=== PATIENT | male | born 1945 | race Caucasian/White ===

== ENCOUNTER 2020-09-17 19:56 | Inpatient (IN) | payer MEDICARE, OTHER ==
[~2020-09-17] VITALS: Ht 170.2 cm; Wt 77.3 kg
[2020-09-17 21:43] LABS: COVID AG,FIA SOURCE NASOPHARYNGEAL
[2020-09-17 21:50] LABS: CALCIUM, TOTAL 9.1 mg/dL (8.8-10.5); CREATININE 8.37 mg/dL (0.60-1.30); POTASSIUM 4.5 mmol/L (3.5-5.1)
[2020-09-17 21:51] LABS: BASOPHILS % (AUTO) 1.3 % (0.0-2.0); EOSINOPHILS % (AUTO) 7.2 % (1.0-6.0); HEMATOCRIT 23.3 % (41-53); HEMOGLOBIN 7.5 g/dL (13.5-17.5); LYMPHOCYTES # (AUTO) 0.8 K/uL (1.0-4.8); LYMPHOCYTES % (AUTO) 12.1 % (22.0-44.0); MEAN CORPUSCULAR HEMOGLOBIN 29.3 pg (26.0-34.0); MEAN CORPUSCULAR VOLUME 92 fL (80-100); MONOCYTES # (AUTO) 0.4 K/uL (0.1-1.0); MONOCYTES % (AUTO) 5.6 % (2.0-9.0); NEUTROPHILS # (AUTO) 4.9 K/uL (1.8-7.7); NEUTROPHILS % (AUTO) 73.8 % (40.0-70.0); PLATELET COUNT (AUTO) 249 K/uL (150-450); RED BLOOD CELL COUNT(AUTO) 2.55 MIL/uL (4.50-5.90); RED CELL DISTRIBUTION WIDTH 16.7 % (11.5-14.5)
[2020-09-17 21:56] LABS: ALBUMIN 2.8 g/dL (3.4-5.0); BILIRUBIN,TOTAL 0.4 mg/dL (0.1-1.0); TOTAL PROTEIN, SERUM 7.1 g/dL (6.4-8.2)
[2020-09-17] MEDS ORDERED: NITROGLYCERIN 2% (1 GM=INCH) PACKET TP ONE (23:30)
[2020-09-18] MEDS ORDERED: ACETAMINOPHEN 325 MG TABLET PO PRN ×2 (00:15→00:30)
[2020-09-18] MEDS ORDERED: 0.9% SODIUM CHLORIDE 10 ML SYRINGE IVP PRN (00:15)
[2020-09-18] MEDS ORDERED: ONDANSETRON HCL 4 MG/2 ML VIAL IVP PRN ×2 (00:15→00:30)
[2020-09-18] MEDS ORDERED: OxyCODONE HCL/ACETAMINOPHEN 5-325 MG TABLET PO PRN (00:30)
[2020-09-18] MEDS: CloNIDine HCL 0.1 MG TABLET PO PRN (03:42)
[2020-09-18 04:34] VITALS: BP 203/81
[2020-09-18 05:30] VITALS: BP 159/68
[2020-09-18] MEDS ORDERED: PNEUMOCOCCAL VACCINE POLYVALENT 0.5 ML VIAL [PPSV23] IM. ONE (05:30)
[2020-09-18] MEDS ORDERED: DEXTROSE 50%-WATER 25 GM/50 ML SYRINGE IVP PRN (05:45)
[2020-09-18 07:40] VITALS: BP 188/68
[2020-09-18] MEDS: DOCUSATE SODIUM 100 MG CAPSULE PO SCH ×2 (08:57→20:27)
[2020-09-18] MEDS: FAMOTIDINE 20 MG TABLET PO SCH (08:57)
[2020-09-18] MEDS: AmLODIPine BESYLATE 10 MG TABLET PO SCH (08:57)
[2020-09-18] MEDS: ASPIRIN 81 MG CHEWABLE TABLET PO SCH (08:57)
[2020-09-18] MEDS: HEPARIN SODIUM,PORCINE 5,000 UNITS/ML VIAL SQ SCH ×2 (08:57→20:25)
[2020-09-18] MEDS ORDERED: LOSARTAN POTASSIUM 50 MG TABLET PO SCH (09:00)
[2020-09-18 11:23] VITALS: BP 145/64
[2020-09-18] MEDS: INSULIN LISPRO 100 UNITS/ML SQ PRN ×2 (11:30→17:20)
[2020-09-18 16:29] VITALS: BP 167/70
[2020-09-18 20:00] VITALS: BP 179/66
[2020-09-18] MEDS: LOSARTAN POTASSIUM 50 MG TABLET PO SCH (20:25)
[2020-09-18] MEDS ORDERED: SODIUM CHLORIDE 0.9% 2,000 ML ONE (21:15)
[2020-09-18 23:56] LABS: GLUCOMETER DEV NAME(LOC) 5S.2B; GLUCOSE,POINT OF CARE 90 MG/DL (70-110)
[2020-09-18 23:57] LABS: GLUCOMETER DEV NAME(LOC) 5S.2B; GLUCOSE,POINT OF CARE 165 MG/DL (70-110)
[2020-09-18 23:57] LABS: GLUCOMETER DEV NAME(LOC) 5S.2B; GLUCOSE,POINT OF CARE 210 MG/DL (70-110)
[2020-09-19] VITALS (14 sets, daily range): BP systolic 138–184; BP diastolic 56–98
[2020-09-19] MEDS: CloNIDine HCL 0.1 MG TABLET PO PRN ×2 (04:14→13:34)
[2020-09-19 05:18] LABS: GLUCOMETER DEV NAME(LOC) 5N.1C; GLUCOSE,POINT OF CARE 59 MG/DL (70-110)
[2020-09-19 05:18] LABS: GLUCOMETER DEV NAME(LOC) 5N.1C; GLUCOSE,POINT OF CARE 85 MG/DL (70-110)
[2020-09-19 07:43] LABS: ALBUMIN 2.3 g/dL (3.4-5.0); BILIRUBIN,TOTAL 0.3 mg/dL (0.1-1.0); CREATININE 5.11 mg/dL (0.60-1.30); POTASSIUM 4.3 mmol/L (3.5-5.1); TOTAL PROTEIN, SERUM 5.8 g/dL (6.4-8.2)
[2020-09-19 08:39] LABS: BASOPHILS % (AUTO) 1.4 % (0.0-2.0); EOSINOPHILS % (AUTO) 11.3 % (1.0-6.0); LYMPHOCYTES # (AUTO) 0.8 K/uL (1.0-4.8); LYMPHOCYTES % (AUTO) 24.6 % (22.0-44.0); MEAN CORPUSCULAR HEMOGLOBIN 29.3 pg (26.0-34.0); MEAN CORPUSCULAR HGB CONC 32.2 G/dL (31.0-37.0); MEAN CORPUSCULAR VOLUME 91 fL (80-100); MONOCYTES # (AUTO) 0.2 K/uL (0.1-1.0); MONOCYTES % (AUTO) 7.3 % (2.0-9.0); NEUTROPHILS # (AUTO) 1.8 K/uL (1.8-7.7); NEUTROPHILS % (AUTO) 55.4 % (40.0-70.0); PLATELET COUNT (AUTO) 167 K/uL (150-450); RED BLOOD CELL COUNT(AUTO) 2.21 MIL/uL (4.50-5.90); RED CELL DISTRIBUTION WIDTH 15.7 % (11.5-14.5)
[2020-09-19 08:46] LABS: HEMATOCRIT 20.1 % (41-53); HEMOGLOBIN 6.5 g/dL (13.5-17.5)
[2020-09-19] MEDS: ASPIRIN 81 MG CHEWABLE TABLET PO SCH (09:13)
[2020-09-19] MEDS: LOSARTAN POTASSIUM 50 MG TABLET PO SCH ×2 (09:13→22:07)
[2020-09-19] MEDS: DOCUSATE SODIUM 100 MG CAPSULE PO SCH ×2 (09:13→22:07)
[2020-09-19] MEDS: HEPARIN SODIUM,PORCINE 5,000 UNITS/ML VIAL SQ SCH ×2 (09:14→22:07)
[2020-09-19] MEDS: AmLODIPine BESYLATE 10 MG TABLET PO SCH (09:14)
[2020-09-19] MEDS: FAMOTIDINE 20 MG TABLET PO SCH (09:14)
[2020-09-19] MEDS: SEVELAMER CARBONATE 800 MG TABLET PO SCH ×2 (12:07→17:15)
[2020-09-19] MEDS ORDERED: SODIUM CHLORIDE 0.9% 250 ML IV ONE (13:18)
[2020-09-19 16:37] LABS: GLUCOMETER DEV NAME(LOC) 5N.3; GLUCOSE,POINT OF CARE 66 MG/DL (70-110)
[2020-09-19 16:37] LABS: GLUCOMETER DEV NAME(LOC) 5N.3; GLUCOSE,POINT OF CARE 113 MG/DL (70-110)
[2020-09-19 21:46] LABS: GLUCOMETER DEV NAME(LOC) 5N.1C; GLUCOSE,POINT OF CARE 106 MG/DL (70-110)
[2020-09-20 02:56] LABS: GLUCOMETER DEV NAME(LOC) 5N.1C; GLUCOSE,POINT OF CARE 106 MG/DL (70-110)
[2020-09-20 04:14] VITALS: BP 156/61
[2020-09-20 06:39] LABS: BASOPHILS % (AUTO) 0.8 % (0.0-2.0); EOSINOPHILS % (AUTO) 7.8 % (1.0-6.0); HEMATOCRIT 22.9 % (41-53); HEMOGLOBIN 7.4 g/dL (13.5-17.5); LYMPHOCYTES % (AUTO) 22.3 % (22.0-44.0); MEAN CORPUSCULAR HEMOGLOBIN 29.4 pg (26.0-34.0); MEAN CORPUSCULAR HGB CONC 32.4 G/dL (31.0-37.0); MEAN CORPUSCULAR VOLUME 91 fL (80-100); MONOCYTES # (AUTO) 0.3 K/uL (0.1-1.0); MONOCYTES % (AUTO) 6.4 % (2.0-9.0); NEUTROPHILS # (AUTO) 2.8 K/uL (1.8-7.7); NEUTROPHILS % (AUTO) 62.7 % (40.0-70.0); PLATELET COUNT (AUTO) 154 K/uL (150-450); RED BLOOD CELL COUNT(AUTO) 2.53 MIL/uL (4.50-5.90); RED CELL DISTRIBUTION WIDTH 16.2 % (11.5-14.5)
[2020-09-20 07:01] LABS: CREATININE 7.06 mg/dL (0.60-1.30); MAGNESIUM 2.1 mg/dL (1.80-2.40); PHOSPHORUS 3.9 mg/dL (2.5-4.9); POTASSIUM 4.7 mmol/L (3.5-5.1)
[2020-09-20 07:03] LABS: GLUCOMETER DEV NAME(LOC) 5N.1C; GLUCOSE,POINT OF CARE 65 MG/DL (70-110)
[2020-09-20 07:04] LABS: GLUCOMETER DEV NAME(LOC) 5N.1C; GLUCOSE,POINT OF CARE 103 MG/DL (70-110)
[2020-09-20 07:26] VITALS: BP 180/65
[2020-09-20] MEDS: SEVELAMER CARBONATE 800 MG TABLET PO SCH ×3 (08:00→17:52)
[2020-09-20] MEDS: HEPARIN SODIUM,PORCINE 5,000 UNITS/ML VIAL SQ SCH ×2 (09:00→21:24)
[2020-09-20] MEDS: DOCUSATE SODIUM 100 MG CAPSULE PO SCH ×2 (09:00→21:24)
[2020-09-20] MEDS: ASPIRIN 81 MG CHEWABLE TABLET PO SCH (09:52)
[2020-09-20] MEDS: FAMOTIDINE 20 MG TABLET PO SCH (09:52)
[2020-09-20] MEDS: LOSARTAN POTASSIUM 50 MG TABLET PO SCH ×2 (09:56→22:34)
[2020-09-20 11:20] VITALS: BP 187/72
[2020-09-20] MEDS: AmLODIPine BESYLATE 10 MG TABLET PO SCH (11:48)
[2020-09-20 16:14] VITALS: BP 156/66
[2020-09-20] MEDS: HydrALAZINE HCL 25 MG TABLET PO SCH ×2 (17:52→21:24)
[2020-09-20 19:39] VITALS: BP 171/60
[2020-09-20 22:18] LABS: GLUCOMETER DEV NAME(LOC) 5N.1C; GLUCOSE,POINT OF CARE 67 MG/DL (70-110)
[2020-09-20 22:19] LABS: GLUCOMETER DEV NAME(LOC) 5N.1C; GLUCOSE,POINT OF CARE 112 MG/DL (70-110)
[2020-09-20 22:19] LABS: GLUCOMETER DEV NAME(LOC) 5N.1C; GLUCOSE,POINT OF CARE 119 MG/DL (70-110)
[2020-09-21] VITALS (7 sets, daily range): BP systolic 147–196; BP diastolic 56–80
[2020-09-21 05:14] LABS: GLUCOMETER DEV NAME(LOC) 5N.3; GLUCOSE,POINT OF CARE 75 MG/DL (70-110)
[2020-09-21 07:21] LABS: BASOPHILS % (AUTO) 1.3 % (0.0-2.0); HEMATOCRIT 22.4 % (41-53); HEMOGLOBIN 7.2 g/dL (13.5-17.5); MEAN CORPUSCULAR HEMOGLOBIN 29.1 pg (26.0-34.0); MEAN CORPUSCULAR HGB CONC 32.3 G/dL (31.0-37.0); MEAN CORPUSCULAR VOLUME 90 fL (80-100); MONOCYTES # (AUTO) 0.3 K/uL (0.1-1.0); MONOCYTES % (AUTO) 7.2 % (2.0-9.0); NEUTROPHILS # (AUTO) 2.2 K/uL (1.8-7.7); NEUTROPHILS % (AUTO) 56.5 % (40.0-70.0); PLATELET COUNT (AUTO) 147 K/uL (150-450); RED BLOOD CELL COUNT(AUTO) 2.48 MIL/uL (4.50-5.90); RED CELL DISTRIBUTION WIDTH 15.7 % (11.5-14.5)
[2020-09-21 07:31] LABS: CALCIUM, TOTAL 8.3 mg/dL (8.8-10.5); CREATININE 6.04 mg/dL (0.60-1.30); MAGNESIUM 2.1 mg/dL (1.80-2.40); PHOSPHORUS 4.1 mg/dL (2.5-4.9); POTASSIUM 5.2 mmol/L (3.5-5.1)
[2020-09-21] MEDS: SEVELAMER CARBONATE 800 MG TABLET PO SCH ×3 (08:00→18:38)
[2020-09-21] MEDS ORDERED: EPOETIN ALFA 10,000 UNITS/ML VIAL SQ SCH ×2 (09:00)
[2020-09-21] MEDS: ASPIRIN 81 MG CHEWABLE TABLET PO SCH (09:59)
[2020-09-21] MEDS: AmLODIPine BESYLATE 10 MG TABLET PO SCH (09:59)
[2020-09-21] MEDS: DOCUSATE SODIUM 100 MG CAPSULE PO SCH ×2 (09:59→20:20)
[2020-09-21] MEDS: FAMOTIDINE 20 MG TABLET PO SCH (09:59)
[2020-09-21] MEDS: HEPARIN SODIUM,PORCINE 5,000 UNITS/ML VIAL SQ SCH ×2 (10:00→20:20)
[2020-09-21 12:00] LABS: GLUCOMETER DEV NAME(LOC) 5N.1C; GLUCOSE,POINT OF CARE 77 MG/DL (70-110)
[2020-09-21 12:00] LABS: GLUCOMETER DEV NAME(LOC) 5N.1C; GLUCOSE,POINT OF CARE 71 MG/DL (70-110)
[2020-09-21 12:22] LABS: GLUCOMETER DEV NAME(LOC) 5N.3; GLUCOSE,POINT OF CARE 80 MG/DL (70-110)
[2020-09-21] MEDS: HydrALAZINE HCL 25 MG TABLET PO SCH ×3 (13:42→20:21)
[2020-09-21] MEDS: LOSARTAN POTASSIUM 50 MG TABLET PO SCH ×2 (13:42→20:21)
[2020-09-22 04:33] VITALS: BP 158/85
[2020-09-22 07:23] VITALS: BP 170/69
[2020-09-22] MEDS: HEPARIN SODIUM,PORCINE 5,000 UNITS/ML VIAL SQ SCH ×2 (08:05→21:21)
[2020-09-22] MEDS: SEVELAMER CARBONATE 800 MG TABLET PO SCH ×3 (08:08→17:17)
[2020-09-22] MEDS: ASPIRIN 81 MG CHEWABLE TABLET PO SCH (08:08)
[2020-09-22] MEDS: DOCUSATE SODIUM 100 MG CAPSULE PO SCH ×2 (08:08→21:21)
[2020-09-22] MEDS: FAMOTIDINE 20 MG TABLET PO SCH (08:08)
[2020-09-22] MEDS: AmLODIPine BESYLATE 10 MG TABLET PO SCH (08:09)
[2020-09-22] MEDS: HydrALAZINE HCL 25 MG TABLET PO SCH ×3 (08:09→21:21)
[2020-09-22] MEDS: LOSARTAN POTASSIUM 50 MG TABLET PO SCH ×2 (08:09→21:21)
[2020-09-22 11:28] LABS: GLUCOMETER DEV NAME(LOC) 5N.1C; GLUCOSE,POINT OF CARE 71 MG/DL (70-110)
[2020-09-22 11:29] LABS: GLUCOMETER DEV NAME(LOC) 5N.1C; GLUCOSE,POINT OF CARE 68 MG/DL (70-110)
[2020-09-22 11:29] LABS: GLUCOMETER DEV NAME(LOC) 5N.1C; GLUCOSE,POINT OF CARE 139 MG/DL (70-110)
[2020-09-22 11:29] LABS: GLUCOMETER DEV NAME(LOC) 5N.1C; GLUCOSE,POINT OF CARE 90 MG/DL (70-110)
[2020-09-22 11:35] VITALS: BP 147/65
[2020-09-22 12:11] LABS: GLUCOMETER DEV NAME(LOC) 5N.1C; GLUCOSE,POINT OF CARE 63 MG/DL (70-110)
[2020-09-22 15:28] LABS: BASOPHILS % (AUTO) 1.4 % (0.0-2.0); EOSINOPHILS % (AUTO) 6.7 % (1.0-6.0); HEMATOCRIT 25.2 % (41-53); HEMOGLOBIN 8.2 g/dL (13.5-17.5); LYMPHOCYTES # (AUTO) 1.1 K/uL (1.0-4.8); LYMPHOCYTES % (AUTO) 22.2 % (22.0-44.0); MEAN CORPUSCULAR HEMOGLOBIN 28.9 pg (26.0-34.0); MEAN CORPUSCULAR HGB CONC 32.3 G/dL (31.0-37.0); MEAN CORPUSCULAR VOLUME 90 fL (80-100); MONOCYTES # (AUTO) 0.3 K/uL (0.1-1.0); MONOCYTES % (AUTO) 5.3 % (2.0-9.0); NEUTROPHILS # (AUTO) 3.3 K/uL (1.8-7.7); NEUTROPHILS % (AUTO) 64.4 % (40.0-70.0); RED BLOOD CELL COUNT(AUTO) 2.82 MIL/uL (4.50-5.90); RED CELL DISTRIBUTION WIDTH 15.4 % (11.5-14.5)
[2020-09-22 15:33] LABS: CALCIUM, TOTAL 8.6 mg/dL (8.8-10.5); CREATININE 5.39 mg/dL (0.60-1.30); POTASSIUM 4.8 mmol/L (3.5-5.1)
[2020-09-22 16:14] LABS: PLATELET COUNT (AUTO) 148 K/uL (150-450)
[2020-09-22 16:24] VITALS: BP 139/59
[2020-09-22] MEDS: FERROUS SULFATE 325 MG EC TABLET PO SCH (17:17)
[2020-09-22 19:22] VITALS: BP 174/62
[2020-09-22 21:03] LABS: GLUCOMETER DEV NAME(LOC) 5N.1C; GLUCOSE,POINT OF CARE 110 MG/DL (70-110)
[2020-09-22 23:37] VITALS: BP 148/58
[2020-09-23 04:29] VITALS: BP 167/61
[2020-09-23 07:22] VITALS: BP 162/66
[2020-09-23 08:13] LABS: GLUCOMETER DEV NAME(LOC) 5S.1; GLUCOSE,POINT OF CARE 74 MG/DL (70-110)
[2020-09-23 08:13] LABS: GLUCOMETER DEV NAME(LOC) 5S.1; GLUCOSE,POINT OF CARE 89 MG/DL (70-110)
[2020-09-23] MEDS: LOSARTAN POTASSIUM 50 MG TABLET PO SCH (08:24)
[2020-09-23] MEDS: FAMOTIDINE 20 MG TABLET PO SCH (08:24)
[2020-09-23] MEDS: AmLODIPine BESYLATE 10 MG TABLET PO SCH (08:24)
[2020-09-23] MEDS: FERROUS SULFATE 325 MG EC TABLET PO SCH (08:24)
[2020-09-23] MEDS: SEVELAMER CARBONATE 800 MG TABLET PO SCH ×2 (08:24→11:43)
[2020-09-23] MEDS: DOCUSATE SODIUM 100 MG CAPSULE PO SCH (08:24)
[2020-09-23] MEDS: ASPIRIN 81 MG CHEWABLE TABLET PO SCH (08:24)
[2020-09-23] MEDS: HEPARIN SODIUM,PORCINE 5,000 UNITS/ML VIAL SQ SCH (08:25)
[2020-09-23] MEDS: HydrALAZINE HCL 25 MG TABLET PO SCH (08:28)
[2020-09-23 11:00] VITALS: BP 145/63
[2020-09-23] MEDS ORDERED: SOD FERRIC GLUC COMPLX/SUCROSE 125 MG in SODIUM CHLORIDE 0.9% 100 ML IV SCH (11:00)
[2020-09-23] MEDS ORDERED: ASPI-1450 PO (14:05)
[2020-09-23] MEDS ORDERED: AMLO-258 PO (14:06)
[2020-09-23] MEDS ORDERED: HYDR25TA84 PO (14:06)
[2020-09-23] MEDS ORDERED: SEVE800T17 PO (14:06)
[2020-09-23] MEDS ORDERED: LOSA50TA37 PO (14:06)
[2020-09-24 08:44] LABS: GLUCOMETER DEV NAME(LOC) 5S.1; GLUCOSE,POINT OF CARE 119 MG/DL (70-110)
[2020-09-24] MEDS ORDERED: EPOETIN ALFA 10,000 UNITS/ML 2 ML VIAL SQ SCH (09:00)
== END 2020-09-23 15:00 | disposition home or self-care (01) | DRG 291 ==
LOC: EMS 19:59 → 5S 09-18 02:00
PROVIDERS: ADMIT Internal Medicine; ATTEND Internal Medicine
PROC: 5A1D70Z Performance of Urinary Filtration, Intermittent, Less than 6 Hours Per Day (ICD-10-PCS; principal; 2020-09-18)
PROC: 30233N1 Transfusion of Nonautologous Red Blood Cells into Peripheral Vein, Percutaneous Approach (ICD-10-PCS; 2020-09-19)
PROC: 5A1D70Z Performance of Urinary Filtration, Intermittent, Less than 6 Hours Per Day (ICD-10-PCS; 2020-09-20)
PROC: 5A1D70Z Performance of Urinary Filtration, Intermittent, Less than 6 Hours Per Day (ICD-10-PCS; 2020-09-21)
DX: I13.2 Hypertensive heart and chronic kidney disease with heart failure and with stage 5 chronic kidney disease, or end stage renal disease (principal); N18.6 End stage renal disease; I50.31 Acute diastolic (congestive) heart failure; E44.0 Moderate protein-calorie malnutrition; E87.3 Alkalosis; J96.11 Chronic respiratory failure with hypoxia; Z20.822 Contact with and (suspected) exposure to COVID-19; E11.22 Type 2 diabetes mellitus with diabetic chronic kidney disease; Z99.2 Dependence on renal dialysis; I16.0 Hypertensive urgency; I34.0 Nonrheumatic mitral (valve) insufficiency; D63.8 Anemia in other chronic diseases classified elsewhere; E21.3 Hyperparathyroidism, unspecified; Z68.26 Body mass index [BMI] 26.0-26.9, adult
CPT/HCPCS: 71045; 80048; 80053; 82271; 82728; 82962; 83540; 83550; 83735; 83880; 84100; 84484; 85025; 86850; 86900; 86901; 86923; 87340; 93005; 93306; 99285; G0378; J0885; J1644; J2916; J7030; J7050; P9016; 36415-L1; 36415-TC